=== PATIENT | male | born 1980 | race Caucasian/White ===

== ENCOUNTER 2020-04-01 15:33 | Outpatient (CLI) | payer OTHER, SELFPAY ==
--- NOTE | 2020-04-01 | XR_ITS ---
WS: [id number] XR hip LT 2-3V wo/w pel* [id number] REASON FOR EXAM: LT HIP PAIN FINDINGS: The left hip joint appears to be normal. The acetabulum was normal along the inner lower as pects there is mild impingement changes occurring The femoral head, neck, intertrochanteric areas are normal. The ilium, ischium, and pubis were normal. XR/XR hip LT 2-3V wo/w pel* [id number] IMPRESSION: Impingement along the inner surface of the acetabular femoral head articulation .
--- NOTE | 2020-04-01 | XR_ITS ---
WS: [id number] XR lumbar spine 2-3V* [id number] REASON FOR EXAM: BACK PAIN FINDINGS: Thoracolumbar rotoscoliosis convex to the left. [place] 5 functional lumbar vertebra as. The disc spaces and the vertebral bodies are normal. The lumbosacral angle was normal. XR/XR lumbar spine 2-3V* [id number] IMPRESSION: Lumbar rotoscoliosis.
== END 2020-04-01 15:34 | disposition home or self-care (01) ==
LOC: RAD 15:39
PROVIDERS: PCP Nurse Practitioner Family; Visit Provider Nurse Practitioner Family
DX: M54.9 Dorsalgia, unspecified (principal); M54.30 Sciatica, unspecified side; M41.86 Other forms of scoliosis, lumbar region; M25.852 Other specified joint disorders, left hip
CPT/HCPCS: 72100; 73502

== ENCOUNTER 2020-09-06 22:11 | Emergency (ER) | payer OTHER, SELFPAY ==
[2020-09-06 22:33] VITALS: BP 135/90; PULSE 93; RESP 22; TEMP 36.9; O2SAT 96; BMI 30.8
[2020-09-06 23:38] VITALS: BP 122/79; PULSE 72; RESP 16; O2SAT 96
--- NOTE | 2020-09-07 00:25 | ED_ITS ---
HPI - Abdominal Pain General: Chief Complaint: Abdominal Pain Stated Complaint: LOWER BACK AND ABDOMINAL PAIN Time Seen by Provider: 09/07/20 00:22 Source: patient Mode of arrival: ambulatory Limitations: no limitations History of Present Illness: HPI narrative: Parker is a nice 40-year-old male who comes in with left flank pain. Patient states he is had pain like this intermittently for the past week. Patient denies any hematuria, dysuria but does have urinary urgency. Patient denies any fevers, chills or nausea vomiting. States the pain feels sharp in nature and is intermittent. It starts in his left back and radiates around to his left lower quadrant. Denies any testicular pain or swelling. He is unaware of anything that makes the pain better or worse. At this present time the patient is not having any pain. Associated Symptoms: Denies chills, coffee ground emesis, constipation, GI cramping, diarrhea, dysuria, fever(s), heartburn, hematochezia, hematuria, hematemesis, melena, nausea, syncope and vomiting Review of Systems Const: Denies: fever(s), chills, body aches, fatigue, malaise or diaphoresis Eyes: Denies: change in vision, blurry vision, photophobia, eye discomfort, eye discharge, eye redness or yellow eyes ENMT: Denies: throat pain, odynophagia, hoarseness, swelling of lips/tongue, ear or mastoid pain, ear discharge, change in hearing or nasal discharge Card: Denies: chest pain, palpitations, irregular heart rhythm, edema, lightheadedness, syncope, pre-syncope, dyspnea on exertion or orthopnea Resp: Denies: dyspnea, productive cough, non-productive cough, wheezing, hemoptysis or chest congestion GI: Denies: abdominal pain, nausea, vomiting, hematemesis, coffee ground emesis, heartburn, diarrhea, constipation, GI cramping, hematochezia or melena : Reports: flank pain and urinary urgency; Denies: dysuria, urinary frequency or hematuria Musc: Denies: neck pain, back pain, extremity pain, extremity swelling, joint pain, joint swelling, joint redness, joint warmth or joint stiffness Skin/Breast: Denies: rash, pruritus, erythema, skin pain or skin tenderness Neuro: Denies: headache(s), numbness in extremities, weakness in extremities, sensory changes, lack of coordination, difficulty walking, dizziness, vertigo, confusion, Slurred speech present or seizure-like activity Florian/Lymph: Denies: easy bruising, easy bleeding, petechiae, purpura or enlarged lymph nodes All/Imm: Denies: urticaria, throat swelling, tongue swelling, facial swelling or acute wheezing PFSH ED PFSH: Medical History No pertinent past medical history Physical Exam Const: COMMON NORMALS: no acute distress, patient oriented x3, no limitations and alert GENERAL APPEARANCE: cooperative HENMT: COMMON NORMALS: normocephalic, atraumatic, external ears normal, EAC's normal and Normal external nose present HEAD & SCALP: normal to inspection, normocephalic and atraumatic FACE & SINUS: normal facial exam and face symmetric NOSE: Normal external nose present and Normal nares present EXTERNAL EAR: Yes external ears normal EXTERNAL AUDITORY CANAL: EAC's normal MOUTH: Normal oral and palatal mucosa present, lip normal and tongue normal Eye: COMMON NORMALS: Equal, round and reactive pupils present and conjunctivae normal GENERAL EYE: appearance normal, both eyes and all related structures ALIGNMENT: Yes alignment normal PERIORBITAL: periorbital findings normal EYELID: eyelids normal CONJUNCTIVA: Yes conjunctivae normal SCLERA: sclerae normal PUPIL: Yes Equal, round and reactive pupils present Neck/C-Spine: COMMON NORMALS: full ROM, no lymphadenopathy, supple, no meningeal signs and no JVD GENERAL: Yes normal visual inspection and Yes trachea midline Chest: COMMONS NORMALS: normal inspection of the chest and normal palpation of entire chest wall Resp: COMMON NORMALS: normal respiratory effort, No retractions, No use of accessory muscles and clear to auscultation bilaterally EFFORT & INSPECTION: Yes able to speak in complete sentences and Yes symmetric chest movement AUSCULTATION: clear to auscultation bilaterally, no crackles, no rales, no rhonchi and no wheezes Cardio: COMMON NORMALS: no JVD, regular rate, regular rhythm, S1 normal heart sound present and S2 normal heart sound present RATE: regular rate RHYTHM: regular rhythm HEART SOUNDS: S1 normal heart sound present, S2 normal heart sound present, no click, no gallops, no murmurs and no rubs GI: COMMON NORMALS: Soft to palpation and No hepatosplenomegaly present PALPATION: Yes Soft to palpation, No Tenderness to palpation present (GI), No Guarding due to palpation present (GI), No Rigid due to palpation, Yes No hepatosplenomegaly present, No Hernia present, No Palpable mass present and No Pulsatile mass present : COMMON NORMALS: Yes no CVA tenderness BLADDER/KIDNEY EXAM: Yes no CVA tenderness Back/Pelvis: COMMON NORMALS: no CVA tenderness, thoracic and lumbar spine normal to inspection, no thoracic nor lumbar tenderness and thoraco-lumbar ROM normal Extremity: COMMON NORMALS: normal to inspection, full ROM, capillary refill normal, no joint enlargement, no clubbing, cyanosis or edema and no calf tenderness Neuro: COMMON NORMALS: patient oriented x3, CN's II-XII intact bilaterally, moves all extremities, no focal motor deficits and no sensory deficits noted SENSORIUM/ORIENTATION: Yes alert MENINGEAL SIGNS: Yes no meningeal signs SPEECH: speech normal Psych: COMMON NORMALS: mental status grossly normal, Normal thought process present, cooperative, normal affect, speech normal and activity/motor behavior normal SPEECH: Yes normal speech THOUGHT PROCESS: Normal thought process present Skin: COMMON NORMALS: no rashes or lesions noted, turgor normal, no jaundice, no petechiae and no mottling GENERAL SKIN EXAM: no rashes or lesions noted and turgor normal Course Vital Signs: Vital signs: Vital Signs Temperature 98.5 F 09/06/20 22:33 Pulse Rate 84 09/07/20 03:00 Respiratory Rate 16 09/07/20 03:00 Blood Pressure 126/77 09/07/20 03:00 Pulse Oximetry 96 09/07/20 03:00 MDM - Abdominal Pain MDM Narrative: Medical decision making narrative: Patient has no evidence of hydronephrosis on the CT. He does have a large stone in the distal ureter. I reviewed the case in full with Dr. Hearn and he is in agreement the patient can go home and follow-up with him in the office. Patient is having no pain at this time. We will go ahead and try to discharge the patient home but he understands to return for any worsening of his symptoms. Lab Data: Attestation: I reviewed the patient's lab results. Labs: Lab Results 09/06/20 09/06/20 09/07/20 Range/Units 01:00 01:00 01:32 WBC 9.2 (4.0-10.0) 10^3/ uL RBC 5.20 (4.1-5.3) 10^6/u L Hgb 14.8 (11.7-16.6) g/dL Hct 45.1 (42.0-52.0) % MCV 86.7 (80-94) fL MCH 28.5 (28.0-34.0) pg MCHC 32.8 (30.0-36.0) g/dL RDW 12.8 (12.1-15.1) % Plt Count 290 (130-400) 10^3/c mm MPV 9.4 (7.4-10.4) fL Neut % (Auto) 65.8 % Lymph % (Auto) 25.4 % [place] % (Auto) 7.6 % Eos % (Auto) 0.5 % Baso % (Auto) 0.5 % Neut # (Auto) 6.01 (1.8-7.7) 10^3/u L Lymph # (Auto) 2.3 (0.8-4.8) 10^3/u L [place] # (Auto) 0.7 (0.2-0.9) 10^3/u L Eos # (Auto) 0.1 (0.0-0.8) 10^3/u L Baso # (Auto) 0.1 (0.0-0.1) 10^3/u L Nucleated RBC % (a uto) 0 % Nucleated RBCs # 0.0 /100WBC Sodium 142 (136-145) mmol/L Potassium 4.6 (3.5-5.1) mmol/L Chloride 106 (98-107) mmol/L Carbon Dioxide 24 (22-29) mmol/L Anion Gap 16.6 (5-19) BUN 17 (6-20) mg/dL Creatinine 0.9 (0.7-1.2) mg/dL GFR Calculation 93.0 (90-130) mL/min Glucose 106 (65-115) mg/dL Calculated Osmolal ity 296 H (285-295) mOsm/k g Calcium 9.4 (8.5-10.5) mg/dL Total Bilirubin 0.4 (0.15-1.2) mg/dL AST 28 (0-40) U/L ALT 34 (0-41) U/L Alkaline Phosphata se 74 (40-130) IU/L Total Protein 7.4 (6.6-8.7) g/dL Albumin 4.6 (3.5-5.2) g/dL Globulin 2.8 (1.3-4.6) g/dL Lipase 26 (13-60) U/L Urine Color Yellow (Yellow) Urine Appearance Clear (CLEAR) Urine pH 5.0 (5-7) Ur Specific Gravit y 1.030 (1.005-1.030) Urine Protein Neg (Negative) Urine Glucose (UA) Norm (Normal) Urine Ketones Negative (Negative) Urine Blood 3+ H (Negative) Urine Nitrate Negative (Negative) Urine Bilirubin Neg (Negative) Urine Urobilinogen Norm (Negative) mg/dL Ur Leukocyte [place] ase Negative (Negative) Urine RBC 5-10 H (0-2) /hpf Urine WBC None (0-5) /hpf Ur Squamous Epith Cells None (0-5) /hpf Amorphous Sediment Not Reportable Urine Bacteria Trace (NONE) /hpf Imaging Data ^: CT Abd/Pel: Radiologist's impression: [place] [address] CT Scan Report Signed Patient: Parker Harrison Unit #: [id number] : 1980 Age/Sex: 40 / M ADM Date: 09/06/20 Loc: ER Room/Bed: Attending Dr: Ordering Provider/Ordering MD: Talya Mann DO Date of Service: 09/07/20 Procedure(s): CT kidney stone 95897 Accession Number(s): [id number] Report Number: [id number] PROCEDURE INFORMATION: Exam: CT Abdomen And Pelvis Without Contrast Exam date and time: 09/07/2020 12:57 AM Age: 40 years old Clinical indication: Abdominal pain; Flank; Left; Additional info: Flank/abdominal pain TECHNIQUE: Imaging protocol: Computed tomography of the abdomen and pelvis without contrast. Radiation optimization: All CT scans at this facility use at least one of these dose optimization techniques: automated exposure control; mA and/or kV adjustment per patient size (includes targeted exams where dose is matched to clinical indication); or iterative reconstruction. COMPARISON: No relevant prior studies available. RADIATION DOSE METRICS: Total DLP (mGy-cm): 1994.81 FINDINGS: Lungs: Lung bases are clear. Liver: The liver is normal. Gallbladder and bile ducts: The gallbladder is normal. There is no biliary dilation. Pancreas: The pancreas is unremarkable. Spleen: The spleen is unremarkable. Adrenal glands: The adrenal glands are unremarkable. Kidneys and ureters: There is a 1 mm nonobstructive stone in the left kidney. No hydronephrosis. There is a stone in the distal left ureter just above the ureterovesical junction visible on axial series 2, image 171 and sagittal series 601, image 35. The stone measures 6 mm in length and 5 mm diameter. The right kidney and ureter are unremarkable. Stomach and bowel: The stomach is unremarkable. The small bowel is nondilated. There is pancolonic diverticulosis. There is no sign of diverticulitis. Appendix: The appendix is normal. Intraperitoneal space: There is no free air or significant intraperitoneal free fluid. Vasculature: There is mild aortic atherosclerotic disease. Lymph nodes: There is no lymphadenopathy in the retroperitoneum, mesentery, pelvis or inguinal regions. Urinary bladder: The urinary bladder is decompressed, preventing meaningful evaluation of wall thickness. Reproductive: The prostate and seminal vesicles are unremarkable. Bones/joints: Bones are unremarkable. Soft tissues: The abdominal wall is intact. CT/CT kidney stone [id number] IMPRESSION: 1. 6 x 5 mm stone in the distal left ureter just above the ureterovesical junction. No hydronephrosis. 2. Tiny nonobstructive stone in the left kidney. 3. Incidental findings above. Radiation Dose CTDIVOL = (mGy): DLP = 1994.81 (mGy-cm) Dictated By: Ej Segovia MD Signed By: Ej Segovia MD Signed Date/Time: 09/07/20207 DD/ 6 Discharge Plan Discharge Patient Disposition: Home Clinical Impression: Ureterolithiasis Condition: Stable Prescriptions: [place] 5-325 mg tablet 1 tab PO Q6H PRN (Reason: pain) 5 Days Qty: 20 RF: 0 Zofran 4 mg tablet 4 mg PO Q6H PRN (Reason: nausea and vomiting) Qty: 20 RF: 0 Macrobid 100 mg capsule 100 mg PO BID 7 Days Qty: 14 RF: 0 Discharge Orders: Discharge Order (Routine); Ordered 09/07/20 Ordered By: Talya Mann Referrals: bD Hearn MD [Physician] - 1-3 days Sheehan,MIRTHA Fuentes [Primary Care Provider] - Discharge Diet: Advance as tolerated Discharge Activity: Increase activity as tolerated Patient Instructions: Kidney Stones (ED), Renal Colic (ED) Activity Restrictions/Additional Instructions: Please return to the ER immediately for any of the signs or symptoms listed on your discharge instruction sheets, worsening/changing of your symptoms, you are not getting better as quickly as expected, or for ANY other cause or concerns. Return to the ER for fever, uncontrolled pain, vomiting, or for any other cause for concern. Be certain to follow-up with Dr. Hearn this week in case you are to need intervention you need to establish with him for further evaluation and care. Strain your urine with a urine strainer you have been given and be certain to take it with you if you pass this prior to seeing Dr. Hearn. Coding Level of Care Code ED Equipment Operator/Laborer for Chg Fwd Exam Comprehensive
--- NOTE | 2020-09-07 01:11 | PC.NURSE ---
Pt stated he is not sure he can void, provided a urinal. Pt stated I will try
[2020-09-07 01:14] LABS: Basophils # 0.1 10^3/uL (0.0-0.1); Basophils % 0.5 %; Eosinophils # 0.1 10^3/uL (0.0-0.8); Eosinophils % 0.5 %; Hematocrit 45.1 % (42.0-52.0); Hemoglobin 14.8 g/dL (11.7-16.6); Lymphocytes # 2.3 10^3/uL (0.8-4.8); Lymphocytes % 25.4 %; Mean Corpuscular HGB Conc 32.8 g/dL (30.0-36.0); Mean Corpuscular Hemoglobin 28.5 pg (28.0-34.0); Mean Corpuscular Volume 86.7 fL (80-94); Mean Platelet Volume 9.4 fL (7.4-10.4); Monocytes # 0.7 10^3/uL (0.2-0.9); Monocytes % 7.6 %; Neutrophils # 6.01 10^3/uL (1.8-7.7); Neutrophils % 65.8 %; Nucleated Red Blood Cells % 0 %; Platelet Count 290 10^3/cmm (130-400); Red Cell Distribution Width 12.8 % (12.1-15.1); White Blood Count 9.2 10^3/uL (4.0-10.0)
[2020-09-07 01:15] VITALS: BP 122/79; PULSE 83; RESP 18; O2SAT 97
[2020-09-07 02:15] VITALS: BP 122/79; PULSE 83; RESP 18; O2SAT 93
[2020-09-07 02:23] LABS: Anion Gap 16.6 (5-19); Blood Urea Nitrogen 17 mg/dL (6-20); Carbon Dioxide 24 mmol/L (22-29); Chloride 106 mmol/L (98-107); Creatinine Clr Calc Pharmacy 141.8768; Potassium 4.6 mmol/L (3.5-5.1); Sodium 142 mmol/L (136-145)
[2020-09-07 02:24] LABS: Alanine Aminotransferase 34 U/L (0-41); Albumin Level 4.6 g/dL (3.5-5.2); Aspartate Amino Transferase 28 U/L (0-40); Calcium 9.4 mg/dL (8.5-10.5); Globulin 2.8 g/dL (1.3-4.6); Glucose 106 mg/dL (65-115); Osmolality Calculated 296 mOsm/kg (285-295); Total Bilirubin 0.4 mg/dL (0.15-1.2); Total Protein 7.4 g/dL (6.6-8.7)
[2020-09-07 02:25] LABS: Alkaline Phosphatase 74 IU/L (40-130); Lipase 26 U/L (13-60)
--- NOTE | 2020-09-07 02:29 | PC.NURSE ---
waiting for ct results
[2020-09-07 02:40] LABS: Add Urine Culture? No; Bacteria Urine TRACE /hpf; Bilirubin Urine Neg (Negative); Blood Urine 3+ (Negative); Glucose Urine UA Norm (Normal); Ketones Urine Negative (Negative); Leukocyte Esterase Urine Negative (Negative); Nitrate Urine Negative (Negative); Protein Urine Neg (Negative); Urine Appearance Clear (CLEAR); Urine Color Yellow (Yellow); Urobilinogen Urine Norm (Negative)
[2020-09-07 03:00] VITALS: BP 126/77; PULSE 84; RESP 16; O2SAT 96
--- NOTE | 2020-09-07 13:41 | DCPLANNER ---
export sales manager had message to schedule a follow up appointment for patient with . export sales manager called the office of Dr. Hearn, spoke with Lisa, gave clinic patients information. export sales manager was told that patients information would be printed and reviewed. Clinic will call patient with appointment information.
--- NOTE | 2020-09-09 13:20 | DCPLANNER ---
Patient had a follow up appointment scheduled for 09.08.[address] Hearn - patient did attend appointment.
== END 2020-09-07 03:20 | disposition home or self-care (01) ==
PROVIDERS: Emergency Provider Emergency Medicine; PCP Nurse Practitioner Family
DX: N20.1 Calculus of ureter (principal)
CPT/HCPCS: 12345; 74176; 80053; 81001; 83690; 85025; 99281; 99283

== ENCOUNTER 2020-09-08 09:21 | Outpatient (CLI) | payer OTHER, SELFPAY ==
--- NOTE | 2020-09-08 08:00 | XR_ITS ---
WS: [id number] KUB, 09/08/2020 Clinical Data: URETERAL STONE Comparison: CT abdomen and pelvis, 09/07/2020. Findings: No abnormal intraabdominal masses are seen. There is no dilatated small bowel or evidence of obstruct ion. There is a calcification adjacent to the left side of sacrum which could represent the 0.6 cm distal left ureteral calculus. No renal calculi are seen. There is fecal material obscuring the right kidney . XR/XR KUB 42054 Impression: Possible distal left ureteral calculus.
== END 2020-09-08 09:22 | disposition home or self-care (01) ==
LOC: RAD 09:23
PROVIDERS: PCP Nurse Practitioner Family; Visit Provider Urology
DX: N20.1 Calculus of ureter (principal)
CPT/HCPCS: 74018; 87635

== ENCOUNTER 2020-09-10 17:56 | Observation (INO) | payer OTHER, SELFPAY ==
[2020-09-09 14:24] VITALS: BMI 30.5
[2020-09-10] VITALS (10 sets, daily range): BP systolic 125–166; BP diastolic 76–91; PULSE 68–92; RESP 13–19; TEMP 36.1–36.7; O2SAT 95–98
--- NOTE | 2020-09-10 | SCC_ITS ---
Procedure Done: 1. Left retrograde ureteropyelogram 2. Cystoscopy, LEFT ureteroscopy, laser, stent 23.2 seconds of fluoroscopic guidance, for a cumulative dose of 6.12 mGy, was provided to Dr. Hearn by the radiology department. C-arm images of the abdomen were saved for the patient's permanent record. [facility]
--- NOTE | 2020-09-10 12:39 | SC_ITS ---
WS: [id number] C-arm fluoroscopy in the OR for ureteral stent placement, 09/10/2020 Clinical Data: Left ureteroscopy for stone Comparison: KUB, 09/08/2020. Findings: A left ureteral stent has been inserted. The proximal portion is probably within the left renal pelvi s. SC/C-arm FL for Urology Impression: Insertion of left ureteral stent.
--- NOTE | 2020-09-10 13:04 | ANES.PREANE2 ---
Pre-Anesthetic Assessment Pre-Anesthetic Assessment: Height/Weight: Height 1.88 m Weight 107.955 kg Temp Pulse Resp BP Pulse Ox 97.7 F 68 18 142/82 97 09/10/20 12:49 09/10/20 12:49 09/10/20 12:49 09/10/20 12:49 09/10/20 12:49 Preop Diagnosis: Refractory left distal ureteral stone Proposed Procedure: Operation Date: 09/10/20 14:00 Proposed Procedures p Laser Lithotripsy 62156 95767 N20.1(Not Applicable) - Db Hearn MD s Cystoscopy(Left) - Db Hearn MD s Retrograde Pyelogram(Not Applicable) - MD mariya Broderick Ureteroscopy(Not Applicable) - MD mariya Broderick Ureteral Stent Placement(Not Applicable) - Db Hearn MD Familial anesthetic complications: none Was Beta Yon taken within 24 hours: N/A Last intake: Intake Last Liquid Date 09/10/20 Last Liquid Time 10:00 Last Solid Date 09/09/20 Last Solid Time 20:00 Social: Social History: Tobacco (chewing) Exam: Pre-Anes Outpt Exam: alert, oriented x 3, clear to auscultation bilaterally and regular rate & rhythm Airway: Submandibular: WNL Cervical ROM: WNL MP: 2 History/ROS: No significant history except as noted Pulmonary: Pulmonary: None reported CV/HEM: CV/HEM: None reported : : None reported Hepatic: Hepatic: None reported GI: GI: None reported Musc/skel: Comments: C6-7 fusion 2017 Neuropsych: Neuropsych: None reported Anesthetic Plan: ASA status: 2 Anesthesia: Anesthesia Evaluation and General Risk of > 500 ml blood loss (7ml/kg in children): No PFSH Anesthesia PFSH: Medical History Left ureteral calculus No pertinent past medical history Family History Mother CAD (coronary artery disease) Father CAD (coronary artery disease) Other Diabetes Social History Smoking and tobacco status: light tobacco smoker smokeless tobacco Smokeless tobacco user: chewing tobacco Alcohol intake: current Alcohol intake frequency: holidays/special occasions only Adopted: No Caregiver/support person: No Lives independently: No Household members: spouse Marital status: Current occupational status: employed Data Anesthesia Cardiac Studies: No Data to Display
--- NOTE | 2020-09-10 13:08 | W.PM.OPSUD ---
Surgery/Procedure H&P Update DATE OF PROCEDURE: September 10, 2020 DATE H&P PERFORMED: 09/08/20 H&P UPDATE INFORMATION: I have reviewed H&P completed within last 30 days, I have examined patient prior to procedure, No changes to prior documentation and [place] [facility] [place] PREOP DIAGNOSIS: Refractory left distal ureteral stone PLANNED PROCEDURE: Operation Date: 09/10/20 14:00 Proposed Procedures p Laser Lithotripsy 33120 99255 N20.1(Not Applicable) - Db Hearn MD s Cystoscopy(Left) - Db Hearn MD s Retrograde Pyelogram(Not Applicable) - MD mariya Broderick Ureteroscopy(Not Applicable) - Db Hearn MD s Ureteral Stent Placement(Not Applicable) - Db Hearn MD
[2020-09-10] MEDS: levofloxacin-dextrose 5 % 500 MG/100 ML PREMIX 100 MG IV (13:13)
[2020-09-10] MEDS: sodium chloride 0.9% 1,000 ML 30 ML IV (13:13)
[2020-09-10] MEDS: iohexol 300 mg/mL 50 mL Btl (OR ONLY) XX (13:50)
--- NOTE | 2020-09-10 14:08 | SUR.PHASEI ---
1406 PATIENT TO PACU FROM OR. NO DISTRESS. APPEARS TO BE RESTING COMFORTABLE ON GURMEDINA.
--- NOTE | 2020-09-10 14:11 | P.OP_ITS ---
Operative Report Date of procedure: September 10, 2020 Pre-op Diagnosis: Refractory left distal ureteral stone Post-op diagnosis: same Procedure Done: 1. Left retrograde ureteropyelogram 2. Cystoscopy, LEFT ureteroscopy, laser, stent Implants: 7 [place] by 30 cm double-pigtail stent with no string Pathology: Stone fragments Surgeon: Dhiraj Anesthesia: General Estimated blood loss: Minimal Complications: None Findings: Stone in the expected position. There was a significant amount of inflammation around the stone. Fragmented with a 365 thulium superpulse laser fiber. All fragments removed. Because of the inflammation a stent was left indwelling. Condition: stable Disposition: PACU Brief History: Parker is a very pleasant 40-year-old white male recently diagnosed with a large left distal ureteral stone with obstruction. On follow-up the stone was still persistent and his symptoms were intermittently severe. He is a real Shannon and could not function with the stone in place as far as pain medication usage for conservative management and ultimately because of those risks he decided to proceed with intervention. Procedure: After routine preoperative evaluation examination and obtaining of informed consent he was taken to the operating suite on 09/10/2020 where general anesthesia was administered without difficulty after appropriate timeout was performed, SCDs confirmed to be functioning, preoperative antibiotics administered, beta-gill protocol confirmed. Prepped and draped in usual sterile fashion in dorsolithotomy position paying careful attention to avoiding pressure points. 21 [place] cystoscope with 30 degree lens was introduced into the urethra meatus and advanced to the bladder under videoscopy. The bladder was systematically examined and found to be within normal limits. No stones were seen in the bladder. An 8 [place] cone-tip catheter was intubated to the left ureteral orifice for LEFT RETROGRADE URETEROPYELOGRAM. The distal ureter was normal in approximately 2 to 4 cm above the ureteral orifice the filling defect consistent with a stone was identified. The ureter proximal to that stone was dilated. No other filling defects were noted. The stone was consistent with the size seen on CT scan. A flexible tip guidewire was then easily advanced up the left ureter bypassing the stone and curling in the upper pole calyx and the ureter distal to the stone was dilated with a 15 [place] 4 cm balloon. The wire was secured to the drapes as a safety wire. A 7 [place] offset semirigid ureteroscope was then advanced up the left ureter and the stone was encountered in the expected position. It had been migrated slightly proximal to the inflamed site. The location of the stone originally was quite inflamed. A 365 ?m thulium superpulse laser fiber was utilized and the stone was fragmented into very small fragments which were then removed with a basket. Final inspection with the scope being passed into the proximal ureter showed no other fragments or stones. The ureter was then again inspected and because of the inflammatory changes as mentioned above it was decided to leave a stent indwelling. Cystoscope was then backloaded over the guidewire and a 7 [place] by 30 cm double-pigtail stent was advanced over the guidewire through the cystoscope into appropriate position as confirmed via fluoroscopy and cystoscopy. The bladder was drained including the stone fragments which had been dropped into the bladder via the basket. The procedure was completed. Tolerated the procedure well without complications and was awakened in the operating room and returned to recovery in stable condition. PLANS: Anticipate discharge from outpatient surgery today and follow-up Sunday of next week for cystoscopy and stent removal after further healing.
--- NOTE | 2020-09-10 14:27 | SUR.PHASEI ---
0229 PATIENT TO OPS FROM PACU. BURNING SENSATION TO PENIS. DENIES ANY OTHER PAIN OR NAUSEA. TOLERATING ICE CHIPS.
--- NOTE | 2020-09-10 14:46 | ANE.PACU2 ---
Inpatient post-anesthesia follow up: Airway intact: Yes Vital signs: Temperature 97.1 F Pulse Rate 78 Respiratory Rate 18 Blood Pressure 139/85 Pulse Oximetry 98 Oxygen Delivery Me thod Room Air Oxygen Flow Rate Fraction of Inspir ed Oxygen Hydration adequate: Yes Nausea and vomiting: No Pain level: 3 Mental status: Baseline
--- NOTE | 2020-09-10 16:18 | ANE.PACU2 ---
Inpatient post-anesthesia follow up: Airway intact: Yes Vital signs: Temperature 97.1 F Pulse Rate 78 Respiratory Rate 18 Blood Pressure 139/85 Pulse Oximetry 98 Oxygen Delivery Me thod Room Air Oxygen Flow Rate Fraction of Inspir ed Oxygen Hydration adequate: Yes Nausea and vomiting: No Pain level: 2 Mental status: Baseline
--- NOTE | 2020-09-10 18:32 | XRR_ITS ---
PROCEDURE INFORMATION: Exam: XR Abdomen, 1 View Exam date and time: 09/10/2020 7:34 PM Age: 40 years old Clinical indication: Patient status: Conscious; Pain: Abd/flank pain; Prior surgery; Surgery type: Stent; Additional info: Check stent placement. Post op pain out of ordinary TECHNIQUE: Imaging protocol: XR of the abdomen. Views: Frontal supine view of the abdomen. 1 View. COMPARISON: CR XR KUB [id number] 09/08/2020 9:30 AM FINDINGS: Left double pigtail ureteral stent. XR/XR KUB [id number] IMPRESSION: 1. Left double pigtail ureteral stent. 2. Distal left ureteral stone no longer visualized.
[2020-09-10] MEDS: morphine 4 mg/mL SDV 1 mL IVP ×2 (18:43→21:03)
[2020-09-10] MEDS: LORazepam 2 mg/mL INJ 1 mL 0.5 MG IVP (18:50)
--- NOTE | 2020-09-10 18:51 | PM.HP ---
Providers/Chief Complaint Admitting Physician: Db Hearn MD Primary Care Provider: Gina Sheehan APN Chief Complaint: cystoscopy History of Present Illness Parker Harrison is a 40 year old male who earlier today underwent an uneventful Left ureteroscopy, laser lithotripsy and stent placement. Complained of significant stent type symptoms in PACU but able to be controlled enough for d/c. called after pain became more severe at home. Didn't respond to increased dosing of oral narcotics. Told to come in for direct admit with planned parenteral pain meds, KUB, and supportive care. No fever. Pain was felt to be as bad as renal colic with stone. LLQ and LUQ with radiation to groin. Much worse with voiding. Encouraged him to return to the hospital for direct admission for pain control and reevaluation. Denied any severe nausea and vomiting fever or chills. KUB upon admission shows a stent in good position. He has been aggressively managed with Ativan, morphine, Toradol and is much improved now than prior to admission. Hopefully tomorrow he will continue to stay significantly better than admission and be able to be discharged for further management on conservative/outpatient basis. Review of Systems Narrative: General: Alert and oriented. Much improved as far as distress from the pain. Respiratory: No audible wheezing or labored respiration. Good air movement Cardiac: Denies chest pain or palpitations GI: No nausea or vomiting. Abdominal pain is still present but markedly improved. : Has a lot of pain with voiding related to the stent. No symptoms of retention. Skin: No rash or lesions Psychiatric: Was in significant distress due to severe pain but that has improved dramatically. Medications/Allergies Home Medications Medication Instructions Recorded Confirmed Last Taken Type nitrofurantoin monohyd/m-cryst 100 mg PO BID 7 Days #14 cap 09/07/20 09/09/20 Unknown Rx [Macrobid] hydrocodone 5 mg-acetaminophen 325 1 tab PO Q6H PRN 5 Days #20 tab 09/08/20 09/09/20 Unknown Rx mg tablet ondansetron HCl 4 mg tablet 4 mg PO Q6H PRN #20 tab 09/08/20 09/10/20 Unknown Rx tamsulosin 0.4 mg capsule 0.4 mg PO DAILY #30 cap 09/08/20 09/09/20 09/10/20 Rx Allergies Allergy/AdvReac Type Severity Reaction Status Date / Time No Known Allergies Allergy Verified 09/06/20 22:38 PFSH Acute PFSH: Medical History (Updated 09/10/20 @ 20:28 by Db Hearn MD) Left ureteral calculus No pertinent past medical history Surgical History (Updated 09/10/20 @ 18:56 by Db Hearn MD) Status post laser lithotripsy of ureteral calculus 09/10/20: LEFT distal ureteral stone. Family History Mother CAD (coronary artery disease) Father CAD (coronary artery disease) Other Diabetes Social History Smoking and tobacco status: light tobacco smoker smokeless tobacco Smokeless tobacco user: chewing tobacco Alcohol intake: current Alcohol intake frequency: holidays/special occasions only Adopted: No Caregiver/support person: No Lives independently: No Household members: spouse Marital status: Current occupational status: employed Vitals/I&O/Wt Last Vital Signs Temp 97.1 F L 09/10/20 14:37 Pulse 78 09/10/20 14:37 Resp 16 09/10/20 18:43 BP 139/85 09/10/20 14:37 Pulse Ox 98 09/10/20 14:37 09/10/20 09/10/20 09/10/20 06:59 14:59 22:59 Intake Total 100 / 100 Output Total 0 / 0 Balance 100 / 100 Weight last 48 hrs Weight 238 lb Physical Exam Const: COMMON NORMALS: alert and well nourished GENERAL APPEARANCE: well kempt and well developed ORIENTATION/CONSCIOUSNESS: not confused HENMT: HEAD & SCALP: normocephalic and atraumatic Eye: CONJUNCTIVA: Yes conjunctivae normal Neck/C-Spine: COMMON NORMALS: full ROM GENERAL: Yes normal visual inspection Resp: COMMON NORMALS: normal respiratory effort EFFORT & INSPECTION: No labored and No Actively coughing GI: PALPATION: Yes Soft to palpation, No Firmness to palpation present (GI), Yes Tenderness to palpation present (GI) (Left upper quadrant left lower quadrant.), No Guarding due to palpation present (GI) and Yes No hepatosplenomegaly present Neuro: COMMON NORMALS: no focal motor deficits SENSORIUM/ORIENTATION: Yes alert Psych: COMMON NORMALS: mental status grossly normal APPEARANCE: Yes grossly normal and Yes well kempt ATTITUDE: Yes calm and Yes engaged Skin: COMMON NORMALS: no rashes or lesions noted and no jaundice Data : 09/10/20 19:16 09/10/20 19:16 A&P Assessment and plan (1) Left flank pain: Severe postoperative left abdominal and flank pain after ureteroscopy laser lithotripsy and stenting. No fever or chills. No evidence of retention. Abdomen is soft without evidence of intra-abdominal crisis. KUB shows the stent is in good position. Exact etiology of the pain is not clear to me but I expect it is just an accelerated response to the stent and the procedure. Plan: 1. Aggressive treatment of pain 2. Hydration 3. If persistence of pain tomorrow obtain CT scan to confirm no urinoma etc. 4. We will still try to maintain the stent for the purposes of healing of the inflamed ureter. 5. Fully reviewed with the patient and he expressed good understanding. Status: Acute Attestations Medical Necessity Statement*: Failed outpatient management with oral narcotics. Was extremis as far as pain goes upon arrival and is much better now. Coding Level of Care Code Acute Media Services Director for [facility] Diagnoses Left flank pain R10.9
[2020-09-10 19:24] LABS: Basophils % 0.2 %; Hematocrit 43.4 % (42.0-52.0); Hemoglobin 14.6 g/dL (11.7-16.6); Lymphocytes # 0.8 10^3/uL (0.8-4.8); Mean Corpuscular HGB Conc 33.6 g/dL (30.0-36.0); Mean Corpuscular Volume 86.1 fL (80-94); Mean Platelet Volume 9.4 fL (7.4-10.4); Monocytes # 0.4 10^3/uL (0.2-0.9); Neutrophils # 11.23 10^3/uL (1.8-7.7); Neutrophils % 90.6 %; Nucleated Red Blood Cells % 0 %; Platelet Count 241 10^3/cmm (130-400); Red Blood Count 5.04 10^6/uL (4.1-5.3); Red Cell Distribution Width 12.7 % (12.1-15.1); White Blood Count 12.4 10^3/uL (4.0-10.0)
[2020-09-10] MEDS: D5-NS 0.45% + KCL 20 mEq 20 MEQ/1,000 ML BAG 75 MEQ IV (19:33)
[2020-09-10] MEDS: ketorolac 30 mg/mL INJ IVP (19:34)
[2020-09-10 19:40] LABS: Anion Gap 12.1 (5-19); Blood Urea Nitrogen 11 mg/dL (6-20); Calcium 8.6 mg/dL (8.5-10.5); Carbon Dioxide 27 mmol/L (22-29); Chloride 103 mmol/L (98-107); Glomerular Filtration Rate 106.5 mL/min (90-130); Glucose 136 mg/dL (65-115); Osmolality Calculated 287 mOsm/kg (285-295); Potassium 4.1 mmol/L (3.5-5.1); Sodium 138 mmol/L (136-145)
[2020-09-10] MEDS: phenazopyridine 100 mg Tablet 200 MG PO (20:00)
--- NOTE | 2020-09-10 21:20 | PC.NURSE ---
Patient stated that he experienced a sharp pain in his left testicle while urinating. Nurse was notified.
[2020-09-10] MEDS: oxyCODONE-APAP 10-325 mg Tablet 1 TAB PO (23:30)
[2020-09-11] VITALS (10 sets, daily range): BP systolic 117–142; BP diastolic 72–87; PULSE 60–70; RESP 16–18; TEMP 36.3–36.5; O2SAT 95–98
[2020-09-11] MEDS: morphine 4 mg/mL SDV 1 mL IVP (01:39)
[2020-09-11] MEDS: oxyCODONE-APAP 10-325 mg Tablet 1 TAB PO ×3 (04:44→15:54)
[2020-09-11] MEDS: D5-NS 0.45% + KCL 20 mEq 20 MEQ/1,000 ML BAG 75 MEQ IV (07:56)
[2020-09-11] MEDS: phenazopyridine 100 mg Tablet 200 MG PO ×2 (07:56→14:00)
[2020-09-11] MEDS: ketorolac 30 mg/mL INJ IVP (07:56)
--- NOTE | 2020-09-11 09:02 | PM.PN ---
Subjective Subjective: Interval history: Postoperative day #1: Ureteroscopy laser lithotripsy of left distal obstructing ureteral stone. Was readmitted last night because of severe left renal colicky symptoms. Could not control the pain at home and it was an extremis because of the pain. Required a lot of medication parenterally last night to get his pain controlled and has still required it throughout the night intermittently. Clearly improved though from his baseline admission. No fevers or chills. No symptoms of retention. No cough. He is hungry. Still having fecal urgency. May have constipation due to recent increase in pain medication but also may be experiencing bladder spasms. Labs last night looked okay. KUB showed the stent to be in good position. Focus for today: 1. Try to control his symptoms with oral narcotics and if able to do so adequately in the absence of any progressive other concerns should be able to discharge later today. 2. If fails oral narcotics alone will continue parenteral medications and inpatient care switch to inpatient status for symptomatic control. Would perform CT scan tomorrow if that is persistent. 3. Stool softeners laxatives 4. Regular diet 5. Reevaluate later today for possible discharge or change to inpatient status pending his symptoms. Medications: Reviewed: Yes Vitals/I&O/Wt Last Vital Signs Temp 97.7 F 09/11/20 08:00 Pulse 62 09/11/20 08:00 Resp 18 09/11/20 08:00 BP 137/82 09/11/20 08:00 Pulse Ox 95 09/11/20 08:00 09/10/20 09/11/20 09/11/20 22:59 06:59 14:59 Intake Total 928.75 / 928.75 Output Total 300 / 300 1625 / 1925 100 / 100 Balance -300 / -200 -1625 / -1825 828.75 / 828.75 Weight last 48 hrs Weight 238 lb Physical Exam Narrative: EXAM NARRATIVE: General: Alert and oriented. Much improved clinical picture but still complaining of significant pain intermittently. Respiratory: No labored respiration. No wheezes Neurologic: No focal defects. Abdomen: Soft some tenderness on the left side no masses etc. Psychiatric: Calm and appropriate. Skin: No rash or lesion Data : 09/10/20 19:16 09/10/20 19:16 Attestations Medical Necessity Statement*: Still requiring aggressive parenteral narcotics for pain control. Will focus on shifting to oral pain medication as tolerated. Can accomplish that can discharge to home for further convalescence. Coding Level of Care Code Acute Data Warehouse Specialist for [facility]
[2020-09-11] MEDS: bisacodyl 5 mg Tablet 10 MG PO (09:25)
[2020-09-11] MEDS: docusate sodium 100 mg Capsule PO (09:25)
--- NOTE | 2020-09-11 12:19 | PC.CHAP ---
Pastoral Care Encounter/Spiritual Assessment Type of Contact [] Declined cyber security instructor visit [] Patient/Family/Request visit [] Outpatient visit [] Follow-up visit [] Physician referral [] Code/Alert [X] Routine visit [] Staff referral [] Actively dying [] Patient sleeping [] Family support [] [] Out of room [] Palliative care [] [] Receiving care in room [] Pre-surgical visit [] Trauma [] Long length of stay [] ICU visit [] Other: Relational/Emotional Strength [X] Patient feels connected with others/family/visitors/staff [] Distress [] Loneliness/isolation [] Abandonment Spirituality of Patient [X] Person of Yuridia [] Attends Synagogue of their Yuridia [X] Believes in Prayer [] Reads Bible or Restoration materials [] There are Spiritual issues to be addressed [employer] Teacher Interventions [X] Prayer [X] Active listening [] Non-anxious presence [] Spiritual/emotional support [] Crisis/trauma care [] Spiritual counseling [] Bereavement support [] Provided bereavement packet [] Provided Bible/devotional materials [] Provided toy/stuffed animal, coloring book to patient or family member [] Provided Communion [] Anointing/[place] [] Salvation [X] Completed spiritual assessment [] Other: Impact on Illness or Injury [] Angry [] Fearful [] Anxious [] Often cries [] Exhaustion [] Unable to work [] Unable to attend mosque [] Unable to walk/stand [] Unable to read [] Unable to drive [] Unable to eat/drink [] Unable to sleep [] Unable to be with family [] Patient intubated [] Other: Summary: Status post kidney stone removal; back in for pain management. Pt has () and young child at home. Joined with him in prayer. Time spent with patient: 5 - 7 mins
[2020-09-11 13:25] LABS: Urine Appearance Cloudy (CLEAR); Urine Color Brown (Yellow); pH Urine 6.5 (5-7)
[2020-09-11 13:26] LABS: Add Urine Microscopic? YES; Bilirubin Urine 3+ (Negative); Blood Urine 3+ (Negative); Glucose Urine UA Norm (Normal); Ketones Urine Negative (Negative); Leukocyte Esterase Urine Trace (Negative); Nitrate Urine Positive (Negative); Protein Urine 3+ (Negative); RBC Urine TOO NUMEROUS TO CNT /hpf (0-2); Urobilinogen Urine 4+ mg/dL (Negative)
[2020-09-11 13:27] LABS: Add Urine Culture? Yes; Bacteria Urine 1+ /hpf
--- NOTE | 2020-09-11 15:40 | P.DS_ITS ---
Discharge Providers Date of Admission: 09/10/20 17:56 Date of Discharge: September 11, 2020 Attending Provider at Admission: Db Hearn MD Attending Provider at Discharge: Db Hearn MD Primary Care Provider: Gina Sheehan APN Diagnoses at Discharge Discharge Diagnosis (1) Left flank pain: Status: Acute Reason for Visit Reason for Visit: Refractory Left Renal Colic postoperatively Brief History: The patient underwent an uneventful left ureteroscopic laser lithotripsy of obstructing refractory left distal ureteral stone on 09/10/2020. He was discharged from our stable condition within a short time after arriving home he developed increasing left-sided pain much exacerbated by voiding. the pain did not respond well to oral narcotics at home and for that reason he was directed symptomatic control and to make sure that nothing more sister was. Hospital Course Hospital Course He was readmitted to the hospital on night of his surgery as mentioned above. His pain was aggressively managed with IV and oral narcotics as well as Toradol and Ativan. Pain was much better controlled with this regimen but still required parenteral narcotics throughout that night and morning of 09/11/2020. Reexamined postoperative day #1 and was felt to be doing well enough for trial of oral narcotics alone. Did well with percocet. Decreasing pain with voiding. Labs ok and KUB showed stent in good position. Discharged on afternoon of POD #1 in stable condition. To f/u as scheduled for cysto/stent removal. Physical Exam Narrative: EXAM NARRATIVE: General: Alert and oriented. Much improved clinical picture but still complaining of significant pain intermittently. Respiratory: No labored respiration. No wheezes Neurologic: No focal defects. Abdomen: Soft some tenderness on the left side no masses etc. Psychiatric: Calm and appropriate. Skin: No rash or lesion Discharge Data Data Completed and Pending: Completed Studies During Hospitalization Category Date Time Status XR KUB [id number] Rout ine Exams 09/10/20 18:32 Completed Pending at discharge Category Date Time Status Urine Culture Rou jeet Lab 09/11/20 12:15 Received Pathology: Surgic al [PTH] Routine Pth 09/10/20 14:09 Ordered Labs from last 24 hours 09/11/20 09/10/20 09/10/20 12:15 19:16 19:16 WBC 12.4 H RBC 5.04 Hgb 14.6 Hct 43.4 MCV 86.1 MCH 29.0 MCHC 33.6 RDW 12.7 Plt Count 241 MPV 9.4 Neut % (Auto) 90.6 Lymph % (Auto) 6.0 [place] % (Auto) 3.0 Eos % (Auto) 0.0 Baso % (Auto) 0.2 Neut # (Auto) 11.23 H Lymph # (Auto) 0.8 [place] # (Auto) 0.4 Eos # (Auto) 0.0 Baso # (Auto) 0.0 Nucleated RBC % (a uto) 0 Nucleated RBCs # 0.0 Sodium 138 Potassium 4.1 Chloride 103 Carbon Dioxide 27 Anion Gap 12.1 BUN 11 Creatinine 0.8 GFR Calculation 106.5 Glucose 136 H Calculated Osmolal ity 287 Calcium 8.6 Urine Color Brown Urine Appearance Cloudy Urine pH 6.5 Ur Specific Gravit y 1.020 Urine Protein 3+ H Urine Glucose (UA) Norm Urine Ketones Negative Urine Blood 3+ H Urine Nitrate Positive H Urine Bilirubin 3+ H Urine Urobilinogen 4+ H Ur Leukocyte Dayana ase Trace H Urine RBC Too numerous to c nt H Urine WBC 5-10 H Ur Squamous Epith Cells None Amorphous Sediment Not Reportable Urine Bacteria 1+ H Vitals: Last Vital Signs Temp 97.7 F 09/11/20 11:42 Pulse 60 09/11/20 11:42 Resp 18 09/11/20 11:42 BP 136/79 09/11/20 11:42 Pulse Ox 95 09/11/20 11:42 Discharge Plan Discharge Patient Disposition: Home Condition: Stable Prescriptions: New Percocet 10-325 mg tablet 1 tab PO Q6H PRN (Reason: Renal colic) Qty: 20 RF: 0 Continued Zofran 4 mg tablet 4 mg PO Q6H PRN (Reason: nausea and vomiting) Qty: 20 RF: 0 tamsulosin 0.4 mg capsule 0.4 mg PO DAILY Qty: 30 RF: 0 nitrofurantoin monohyd/m-cryst [Macrobid] 100 mg capsule 100 mg PO BID 7 Days Qty: 14 RF: 0 Discontinued [place] 5-325 mg tablet 1 tab PO Q6H PRN (Reason: pain) 5 Days Qty: 20 RF: 0 Discharge Orders: Discharge Order (Routine); Ordered 09/11/20 Ordered By: Db Hearn Referrals: Db Hearn MD [Physician] - 09/14/20 (Cystoscopy with stent removal. No KUB Dr. Hearn's office will call you Sunday with an appointment. If you don't hear from them please call [phone]) Discharge Diet: Usual diet Discharge Activity: Increase activity as tolerated Patient Instructions: Oxycodone/Acetaminophen (By mouth), General Anesthesia (Injection), Ureteral Stent Placement (DC), Post Anesthesia Care Activity Restrictions/Additional Instructions: 1. The procedure went very well. The stone was completely fragmented with the laser. 2. Because there was a lot of' inflammation where the stone had been impacted in the ureter it was decided to leave a stent indwelling to avoid recurrent obstruction. 3. We will plan on removing the stent next Sunday the in the clinic with cystoscopy. The date can be modified according to your schedule but I would like to leave it in at least that long for healing purposes before removing. 4. You can expect to have blood in the urine at times with clots, left flank pain with voiding at times, urgency and frequency. These are all related to the stent and are to be expected. This should resolve after the stent has been removed. NEW INSTRUCTIONS: Keep appointment as scheduled Continue stool softener and laxative. OTC will work fine. Can substitute Alleve/Tylenol for Percocet if pain is not severe. Call if you can't get pain controlled. Discharge Attestations Time Spent in Discharge Care*: less than 30 min Quality Metrics Clinical Quality Measures During this hospital stay, did patient experience: None Coding Level of Care Code Acute Steamtable Worker for [facility] Diagnoses Left flank pain R10.9
--- NOTE | 2020-09-13 08:57 | PC.RESP ---
SMOKING CESSATION INFORMATION SENT TO PATIENT.
[2020-09-20 03:16] LABS: Stone Source LEFT URETERAL STONE
== END 2020-09-11 16:38 | disposition home or self-care (01) ==
LOC: MEDSURG 18:49
PROVIDERS: Admitting Provider Urology; PCP Nurse Practitioner Family; Visit Provider Urology
PROC: (CPT 52356; principal; 2020-09-10 14:00)
PROC: 0TJB8ZZ Inspection of Bladder, Via Natural or Artificial Opening Endoscopic (ICD-10-PCS; CPT 52000; 2020-09-10 14:00)
PROC: (CPT 74420; 2020-09-10 14:00)
PROC: 0TJ98ZZ Inspection of Ureter, Via Natural or Artificial Opening Endoscopic (ICD-10-PCS; CPT 52351; 2020-09-10 14:00)
PROC: (CPT 50605; 2020-09-10 14:00)
DX: N20.1 Calculus of ureter (principal); F17.220 Nicotine dependence, chewing tobacco, uncomplicated
CPT/HCPCS: 52356; 12345; 36415; 74018; 76000; 80048; 81001; 82365; 85025; 87086; 88300; 96360; 96375; C1725; C2625; G0378; J1885; J1956; J2060; J2270; J2405; J2704; J7030

== ENCOUNTER → 2020-09-14 11:19 | Outpatient (BNVA) | payer OTHER, SELFPAY | PROVIDERS: PCP Nurse Practitioner Family; Visit Provider Urology | DX: N20.1 Calculus of ureter (principal); Z96.0 Presence of urogenital implants | CPT/HCPCS: 81003 ==